=== PATIENT | male | born 1985 ===

== ENCOUNTER 2025-04-09 03:17 | Outpatient (CLI) | payer OTHER, SELFPAY ==
--- NOTE | 2025-04-09 07:15 | DI.RAD_ITS ---
Exam(s) XR FOOT RT COMPLETE EXAM: XR FOOT RT COMPLETE CLINICAL HISTORY: Right foot pain,M79.671. TECHNIQUE: 2D digital imaging was performed. Three views. COMPARISON: No exams were available for comparison FINDINGS: BONES: No acute fracture is present. No bony destructive lesion is seen. JOINTS: No dislocation present. No significant degenerative changes. Plantar arch is maintained. SOFT TISSUE: Normal. IMPRESSION: Unremarkable radiographs of the right foot. DATA REPOSITORY: RADIATION DOSE DELIVERED:
== END 2025-04-09 03:37 ==
PROVIDERS: PCP Physical Therapist; Visit Provider Physical Therapist
DX: M79.671 Pain in right foot (principal)
CPT/HCPCS: 73630